=== PATIENT | female | born 1990 | race African-American/Black ===

== ENCOUNTER 2022-12-12 08:20 | Emergency (ER) | payer MEDICAID ==
[~2022-12-12] VITALS: Ht 162.6 cm; Wt 69.0 kg
[2022-12-12 08:27] VITALS: BP 163/105
[2022-12-12] MEDS ORDERED: ACETAMINOPHEN 325MG TABLET PO ONE (11:45)
[2022-12-12] MEDS ORDERED: FLUORESCEIN SODIUM 1MG/STRIP BOTHEYE ONE (11:45)
[2022-12-12] MEDS ORDERED: IBUP-2029 MT (14:07)
[2022-12-12] MEDS ORDERED: TRIMO EACHEYE (14:07)
== END 2022-12-12 14:50 | disposition home or self-care (01) ==
LOC: ER 08:20
DX: S00.83XA Contusion of other part of head, initial encounter (principal); S00.03XA Contusion of scalp, initial encounter; H10.9 Unspecified conjunctivitis; R03.0 Elevated blood-pressure reading, without diagnosis of hypertension; Y04.2XXA Assault by strike against or bumped into by another person, initial encounter; Y93.89 Activity, other specified; Y92.89 Other specified places as the place of occurrence of the external cause
CPT/HCPCS: 70486; 99284